=== PATIENT | male | born 1990 | race Caucasian/White ===

== ENCOUNTER → 2020-08-30 13:27 | Outpatient (CLI) | payer OTHER, SELFPAY ==
[2020-08-31 14:51] LABS: COVID19 Sendout Not Detected (Not Detect)
== END ==
PROVIDERS: Visit Provider Physician Assistant
DX: Z11.59 Encounter for screening for other viral diseases (principal)
CPT/HCPCS: 87635

== ENCOUNTER 2020-09-02 07:20 | Day surgery (SDC) | payer OTHER, SELFPAY ==
[2020-09-02] VITALS (8 sets, daily range): BP systolic 92–116; BP diastolic 53–72; PULSE 53–71; RESP 10–18; TEMP 35.9–36.9; O2SAT 94–98; BMI 27.8
--- NOTE | 2020-09-02 | PATH_ITS ---
[facility] Accession Number: [id number] . 01 Material submitted: . cecum - CECAL POLYP . 02 Diagnosis: Cecum, Polyp: Sessile serrated adenoma. MRV 09/04/2020 1029 Local . 02 Electronically signed: . Jorge Palacios MD, PhD, Pathologist NPI- [id number] . 01 Gross description: . CECAL POLYP: Received in formalin is 1 fragment(s) of bonner, soft tissue measuring 0.5 x 0.5 x 0.1 cm submitted entirely in 1 cassette(s) /QBJ 09/03/2020 0848 Local . 02 Pathologist provided ICD-10: D12.0 . 02 CPT . 189280 Performed at: 01 [facility] [address] [facility], [place], [place] [id number] MD Sukhi Cevallos MD Phone: [phone] Performed at: 02 [facility] [address] [place], [place] [id number] MD Arina Diaz MD Phone: [phone]
--- NOTE | 2020-09-02 07:47 | PM.HP.1 ---
History of Present Illness History of Present Illness Date Patient Seen: 09/02/20 Chief complaint: SDC Narrative: 29-year-old male seen at our office on 08/27/2020. Please refer to that note for further details. He is here for evaluation of persistent loose stools and findings of abnormal CT. Patient History Family & Social History Social History: household members spouse Tobacco & Substance use: Smoking Status Former smoker alcohol intake current alcohol intake frequency holiday/special occasion Substance Use Type does not use Meds Home Medications and Allergies Home Medications Medication Instructions Recorded Confirmed Type No Known Home Medications 09/02/20 09/02/20 History Allergies Allergy/AdvReac Type Severity Reaction Status Date / Time No Known Drug Allergies Allergy Verified 09/02/20 07:28 Exam Vital Signs (past 8 hours): - 09/02/20 07:29 Temperature 96.7 F L Pulse Rate 60 Respiratory Rate 18 Blood Pressure 116/69 Pulse Oximetry 97 Oxygen Delivery Method Room Air Narrative Exam Narrative: General: Patient is overweight, not in apparent distress Cardiovascular: Regular rate and rhythm, no murmurs, rubs, or gallops; no evidence of edema; no palpable abdominal aortic aneurysm Gastrointestinal: Normoactive bowel sounds, soft, nontender, nondistended, no rebound tenderness, no hepatosplenomegaly, no evidence of hernia Assessment & Plan Assessment & Plan narrative: 29-year-old male with abnormal CT findings and persistent loose stools who is here for further evaluation by means of colonoscopy Regarding the procedure(s), the risks and potential complications, benefits, and alternatives (including not doing the procedure) were discussed with the patient. The risks include but are not limited to bleeding, splenic injury, infection, perforation which may require surgical intervention, missed lesions, and adverse reactions to sedative medicines. After a question and answer period, the patient agreed to proceed with the procedure(s) and gives informed consent.
[2020-09-02] MEDS: SODIUM CHLORIDE 0.9% 1,000 ML 70 ML IV (07:52)
--- NOTE | 2020-09-02 08:28 | P.OP.ENDO_ITS ---
Operative Date/Time/Diagnoses Date of procedure: 09/02/20 Procedure Notes Procedure in detail: Surgeon: Bartolo Clifton MD Procedure: Colonoscopy with snare polypectomy Preoperative diagnosis: Abnormal thickening in the right colon seen on CT Postoperative diagnosis: Cecal polyp status post polypectomy, single ascending colon diverticulum, grade 1 internal hemorrhoids Medications: Conscious sedation using 2 mg IV of Midazolam and 100 mcg IV of Fentanyl Preanesthesia Assessment An H and P was performed/updated and the Px?s ASA class is 1. The procedure was discussed in detail with the patient. The potential risks and complications including infection, bleeding, missed lesions, perforation, need for surgery in case of perforation, prolonged hospital stay, and were explained. A brief question and answer period was allotted and once all questions were answered, informed consent was obtained. The patient was brought back to the procedure room and placed on standard monitoring. The patient?s vital signs were monitored continuously throughout the entire procedure. Prior to starting, a timeout was performed to confirm the patient?s identity, allergies, medications, and procedure. Procedure in detail The patient was placed in left lateral decubitus position and once adequate sedation was obtained a ANDRZEJ was performed. The digital rectal examination did not reveal any palpable lesions. The tip of the colonoscope was placed in the anal canal and advanced without difficulty all the way to the cecum which was identified by the appendiceal orifice and the ileocecal valve. The terminal ileum was intubated to a distance of 5 cm from the ileocecal valve and there was no note of any abnormality in the mucosa. The colonoscope was then brought back to the cecum and careful examination of all blanchard of the colon was performed with irrigation of any residual stool. In the cecum, a 4 mm sessile polyp was found and removed by means of cold snare. Resection and retrieval was complete with minimal bleeding In the ascending colon, there was a single diverticulum visualized. The remainder of the right colon appeared normal, as did the entirety of the left colon. Retroflexion was performed in the rectum which revealed grade 1 internal hemorrhoids The patient tolerated the procedure well and will be brought back to the recovery area to be discharged once criteria are met. The prep was judged to be good and adequate to identify polyps less than 5 mm. The withdrawal time was 7 minutes. The total physician intraservice time was 11 minutes. Complications There were no complications and estimated blood loss was minimal. Recommendations: Resume previous diet Follow up pathology results Repeat colonoscopy in 5 or 7 years or at age 48, depending on pathology results. Call our office ([facility]) to schedule follow-up if you have any recurrence symptoms An emergency contact number was given to the patient for any complications related to the procedure
[2020-09-02] MEDS: fentaNYL 250 MCG/5 ML INJ IV (08:43)
[2020-09-02] MEDS: MIDAZOLAM 5 MG/5 ML VIAL IV (08:45)
--- NOTE | 2020-09-02 09:10 | SUR.PHASEI ---
aroused easily to voice, denies pain/nausea, states that he doesn't remember anything. Returned to sleep after a sip of water.
== END 2020-09-02 09:42 | disposition home or self-care (01) ==
PROVIDERS: Referring Provider Internal Medicine Gastroenterology; Visit Provider Internal Medicine Gastroenterology
PROC: 0DJD8ZZ Inspection of Lower Intestinal Tract, Via Natural or Artificial Opening Endoscopic (ICD-10-PCS; CPT 45378; principal; 2020-09-02 08:30)
DX: D12.0 Benign neoplasm of cecum (principal); K64.0 First degree hemorrhoids
CPT/HCPCS: 45378; J2250; J3010

== ENCOUNTER 2023-04-18 09:29 | Day surgery (SDC) | payer OTHER, SELFPAY ==
[2023-04-12 12:18] VITALS: BMI 29.0
[2023-04-18] VITALS (7 sets, daily range): BP systolic 113–146; BP diastolic 72–105; PULSE 70–87; RESP 4–18; TEMP 36.1–36.4; O2SAT 61–99; BMI 29.0
--- NOTE | 2023-04-18 12:08 | PM.HP.1 ---
History of Present Illness History of Present Illness Date Patient Seen: 04/18/23 Time Patient Seen: 12:08 Chief complaint: [facility] [place] Narrative: Rusty is here for his exam under anesthesia possible fistulotomy. His swelling has reduced since last saw but he still his [facility] Medical History Chronic low back pain Diverticulitis Surgical History (Updated 04/12/23 @ 12:21 by Norma Hardy RN) Hx of colonoscopy (2020) Social History household members: spouse Smoking Status: Current some day smoker alcohol intake: current Meds Home Medications and Allergies Home Medications Medication Instructions Recorded Confirmed Type bacillus coagulans-inulin 1 1 cap PO DAILY 03/13/23 04/18/23 History billion cell-250 mg capsule (Probiotic Formula (inulin)) prednisone 20 mg tablet 20 mg PO DAILY 04/18/23 04/18/23 History Allergies Allergy/AdvReac Type Severity Reaction Status Date / Time No Known Drug Allergies Allergy Verified 04/18/23 10:08 Exam Vital Signs (past 8 hours): - 04/18/23 09:59 Temperature 97.3 F L Pulse Rate 70 Respiratory Rate 18 Blood Pressure 125/84 Pulse Oximetry 98 Oxygen Delivery Method Room Air Oxygen Delivery Method Room Air Const General: No acute distress Assessment & Plan Assessment and plan (1) [id number]: Status: Acute Plan Plan to proceed to the operating room for examination under anesthesia and fistulotomy versus seton
--- NOTE | 2023-04-18 12:56 | SUR.OPER ---
Prone on padded OR bed, head in foam head support, gel chest rolls, gel pad under knees, pillow under lower legs, toes free of pressure, arms secured on padded arm boards at <90 degrees abduction. Safety belt at thigh.
[2023-04-18] MEDS: LACTATED RINGERS 1,000 ML 100 ML IV (13:00)
[2023-04-18] MEDS: BUPIVACAINE LIPOSOME 266 MG/20 ML VIAL INJ (13:02)
[2023-04-18] MEDS: ONABOTULINUMTOXINA 100 UNIT VIAL INJ (13:09)
--- NOTE | 2023-04-18 13:13 | P.OP_ITS ---
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 No antibiotics were indicated. He was then placed on the operating room table in the prone lara-knife position. Buttocks were taped apart. Perineum was prepped and draped in the usual fashion and a time-out was performed. Digital rectal exam was performed with a well lubricated finger. The patient was noted to have high sphincter tone and a bleeding posterior anal fissure. There was also an external skin tag on the left side. Next, the tract was probed from the external opening to the internal opening. The fistula was a straight tract from the external opening to the internal opening right lateral position just above the dentate line. The tract was opened using the cautery. A few bleeders were cauterized. A curette was used to rough the tract. We then injected 20 mL of Exparel around the fistulotomy wound as well as in the posterior aspect of the anus with fissure was located. We then tee up 20 units of Botox injected 10 units into left lateral and 10 units into the right lateral aspect of the sphincter muscle to allow perfusion to healing fissure and fistulotomy. Finally, a well lubricated Gelfoam roll was placed into the anus. EBL: 10 mL Post-operative Condition: stable Disposition: PACU
[2023-04-18] MEDS: ONDANSETRON 4 MG/2 ML INJ IV (14:00)
== END 2023-04-18 14:34 | disposition home or self-care (01) ==
PROVIDERS: Referring Provider Surgery; Visit Provider Surgery
PROC: (CPT 46270; principal; 2023-04-18 09:45)
DX: K60.3 Anal fistula (principal); K60.2 Anal fissure, unspecified
CPT/HCPCS: 46270; C9290; J0585; J2250; J2405; J2704; J3010